=== PATIENT | male | born 1990 | race Hispanic/Latino ===

== ENCOUNTER 2019-06-16 22:23 | Emergency (ER) | payer SELFPAY ==
[2019-06-16 23:18] LABS: Absolute Lymphocytes (CBC) 1.3 K/uL (0.7-4.9); Basophils % 0.4 % (0-1.3); Hematocrit 43.6 % (39.6-49.0); Lymphocytes % 13.3 % (15.3-44.8); MPV 7.9 fL (7.6-11.3); RBC Red Blood Cell Count 4.97 M/uL (4.33-5.43)
[2019-06-16 23:22] LABS: Protime INR 1.08
[2019-06-16] MEDS ORDERED: NA CHLORIDE 0.9% 2,000 ML ONE (23:33)
[2019-06-16 23:45] LABS: ALT/SGPT 34 U/L (12-78); AST/SGOT 29 U/L (15-37); Albumin 4.5 g/dL (3.4-5.0); Alkaline Phosphatase 80 U/L (45-117); BUN Blood Urea Nitrogen 13 mg/dL (7-18); Bicarbonate 22 mmol/L (21-32); Bilirubin Direct 0.2 mg/dL (0-0.2); Bilirubin Total 0.7 mg/dL (0.2-1.0); Glucose Level 159 mg/dL (74-106); Potassium 3.5 mmol/L (3.5-5.1); Protein, Total 8.2 g/dL (6.4-8.2); Sodium Level 139 mmol/L (136-145)
--- NOTE | 2019-06-16 23:56 | RAD REPORT ---
EXAM DESCRIPTION: Elder Single View06/16/2019 11:48 pm CLINICAL HISTORY: cough COMPARISON: none FINDINGS: The lungs appear clear of acute infiltrate. The heart is normal size IMPRESSION: No acute abnormalities displayed
--- NOTE | 2019-06-17 01:14 | ER ---
Nurse's Notes [facility] Name: Prosper Jurado Age: 28 yrs Sex: Male : 1990 Arrival Date: 06/16/2019 Time: 22:[address] Private MD: Diagnosis: Epileptic seizures related to external causes;Abuse of non-psychoactive substances;Cocaine abuse;Cocaine abuse with intoxication, unspecified Presentation: 06/16 22:44 Presenting complaint: EMS states: Called out for patient barely breathing; Probable lp1 seizure witnessed by patient's girlfriend lasting about 3 minutes; States + ETOH tonight, denies any recreational drug usage, patient drowsy on arrival of EMS, HR 150's, A/O x3 on arrival to ED. Transition of care: patient was not received from another setting of care. Onset of symptoms was June 16, 2019. Risk Assessment: Do you want to hurt yourself or someone else? Patient reports no desire to harm self or others. Initial Sepsis Screen: Does the patient meet any 2 criteria? HR > 90 bpm. Does the patient have a suspected source of infection? No. Patient's initial sepsis screen is negative. Care prior to arrival: IV initiated. 18 GA, in the right antecubital area, Glucose check: 168. 22:44 Method Of Arrival: EMS: [facility] lp1 22:44 Acuity: FABRICIO 2 lp1 Historical: - Allergies: 22:48 PENICILLINS; lp1 - Home Meds: 22:48 None [Active]; lp1 - PMHx: 22:48 Asthma; lp1 - PSHx: 22:48 None; lp1 - Immunization history:: Adult Immunizations up to date. - Social history:: Smoking status: Patient uses tobacco products, denies chronic smoking, but will smoke occasionally, Patient uses alcohol, only on a social basis. Patient/guardian denies using street drugs. - Ebola Screening: : No symptoms or risks identified at this time. - Family history:: not pertinent. Screenin:47 Abuse screen: Denies threats or abuse. Denies injuries from another. Nutritional lp1 screening: No deficits noted. Tuberculosis screening: No symptoms or risk factors identified. Fall Risk Total Jackson Fall Scale indicates High Risk Score (45 or more points). Fall prevention measures have been instituted. Side Rails Up X 2 Family Present and informed to notify staff if the need to leave the bedside As available patient and family educated on Fall Prevention Program and Strategies. Assessment: 23:00 General: Appears in no apparent distress. Behavior is cooperative, restless. Pain: lp1 Denies pain. Neuro: Level of Consciousness is awake, alert, obeys commands, Oriented to person, place, situation, Speech is normal. Cardiovascular: Patient's skin is warm and dry. Respiratory: Respiratory effort is even, unlabored, Respiratory pattern is regular, Breath sounds are clear bilaterally. GI: Abdomen is non-distended. : No signs and/or symptoms were reported regarding the genitourinary system. EENT: No signs and/or symptoms were reported regarding the EENT system. Derm: Skin is pink, warm \T\ dry. Musculoskeletal: Circulation, motion, and sensation intact. 06/17 00:15 Reassessment: No changes from previously documented assessment. Patient restless in lp1 bed, cooperative; Denies pain. 01:16 Reassessment: Patient returned from CT at this time. lp1 02:00 Reassessment: Patient appears in no apparent distress at this time. Patient and/or lp1 family updated on plan of care and expected duration. Pain level reassessed. General: Appears in no apparent distress. Behavior is calm, cooperative. 02:00 Derm: Skin is pink, warm \T\ dry. lp1 Vital Signs: 06/16 22:46 BP 137 / 85; Pulse 123; Resp 20; Temp 98; Pulse Ox 94% on R/A; Weight 88.45 kg; Height lp1 5 ft. 7 in. (170.18 cm); Pain 0/10; 23:39 BP 118 / 71; Pulse 103; Resp 17; Pulse Ox 99% on R/A; jd3 06/17 00:00 BP 119 / 77; Pulse 95; Resp 18; Pulse Ox 98% on R/A; lp1 00:55 BP 119 / 73; Pulse 90; Resp 16 S; Pulse Ox 95% on R/A; jd3 01:45 BP 121 / 77; Pulse 80; Resp 20; Pulse Ox 99% on R/A; Pain 0/10; lp1 06/16 22:46 Body Mass Index 30.54 (88.45 kg, 170.18 cm) lp1 ED Course: 06/16 22:37 Patient arrived in ED. lp1 22:37 Natalie Barron, RN is Primary Nurse. lp1 22:37 Arm band placed on left wrist. lp1 22:46 Triage completed. lp1 22:47 Patient has correct armband on for positive identification. Placed in gown. Bed in low lp1 position. Seizure precautions initiated. monitor car operator on. Pulse ox on. NIBP on. 22:47 Maintain EMS IV. Dressing intact. Good blood return noted. Site clean \T\ dry. Gauge \T\ lp 1 site: 18g to R AC. 23:24 Asael Moraes MD is Attending Physician. [facility] 06/17 01:13 Jorge Card MD is Referral Physician. margo 02:10 No provider procedures requiring assistance completed. IV discontinued, No lp1 redness/swelling at site. Pressure dressing applied. 05:07 CT Head Brain wo Cont In Process Unspecified. EDMS Administered Medications: 06/16 23:39 Drug: NS 0.9% 1000 ml Route: IV; Rate: 1 bolus; Site: right antecubital; d3 06/17 01:00 Follow up: IV Status: Completed infusion; IV Intake: 1000ml lp1 06/16 23:39 Drug: NS 0.9% 1000 ml Route: IV; Rate: 1 bolus; Site: right antecubital; d3 06/17 01:00 Follow up: IV Status: Completed infusion; IV Intake: 1000ml lp1 Intake: 01:00 IV: 1000ml; Total: 1000ml. lp1 01:00 IV: 1000ml; Total: 2000ml. lp1 Outcome: 01:14 Discharge ordered by . margo 02:10 Discharged to home ambulatory, with significant other. lp1 02:10 Condition: stable 02:10 Discharge instructions given to patient, significant other, Instructed on discharge instructions, follow up and referral plans. Demonstrated understanding of instructions, follow-up care. 02:15 Patient left the ED. lp1 Signatures: Dispatcher [employer] EDMS Asael Moraes MD MD cha Pena, Laura, RN RN lp1 Hamzah Grimes RN RN jd3 Corrections: (The following items were deleted from the chart) 02:28 01:45 BP 121 / 77; Pulse 80bpm; Resp 20bpm; Pulse Ox 99% RA; lp1 lp1 02:30 02:30 Patient left the ED. lp1 lp1
--- NOTE | 2019-06-17 01:15 | EDPHYS ---
Physician Documentation [facility] Name: Prosper Jurado Age: 28 yrs Sex: Male : 1990 Arrival Date: 06/16/2019 Time: 22:[address] Private MD: ED Physician Asael Moraes HPI: 06/16 23:26 This 28 yrs old Male presents to ER via EMS with complaints of Probable margo Seizure. 23:26 The patient presents after having a single isolated seizure. Character of seizure(s): margo Loss of consciousness: the patient experienced loss of consciousness, Motor activity: generalized. Seizure onset: just prior to arrival. Context: the seizure(s) was witnessed, by family, , occurred at home. Seizure Hx: the patient has no previous seizure history. Associated injury: The patient did not suffer any apparent associated injury. The patient has not experienced similar symptoms in the past. Historical: - Allergies: 22:48 PENICILLINS; lp1 - Home Meds: 22:48 None [Active]; lp1 - PMHx: 22:48 Asthma; lp1 - PSHx: 22:48 None; lp1 - Immunization history:: Adult Immunizations up to date. - Social history:: Smoking status: Patient uses tobacco products, denies chronic smoking, but will smoke occasionally, Patient uses alcohol, only on a social basis. Patient/guardian denies using street drugs. - Ebola Screening: : No symptoms or risks identified at this time. - Family history:: not pertinent. ROS: 23:26 Constitutional: Negative for fever, chills, and weight loss, Eyes: Negative for injury, margo pain, redness, and discharge, ENT: Negative for injury, pain, and discharge, Neck: Negative for injury, pain, and swelling, Cardiovascular: Negative for chest pain, palpitations, and edema, Respiratory: Negative for shortness of breath, cough, wheezing, and pleuritic chest pain, Abdomen/GI: Negative for abdominal pain, nausea, vomiting, diarrhea, and constipation, Back: Negative for injury and pain, : Negative for injury, bleeding, discharge, and swelling, MS/Extremity: Negative for injury and deformity, Skin: Negative for injury, rash, and discoloration, Psych: Negative for depression, anxiety, suicide ideation, homicidal ideation, and hallucinations, Allergy/Immunology: Negative for hives, rash, and allergies, Endocrine: Negative for neck swelling, polydipsia, polyuria, polyphagia, and marked weight changes, Hematologic/Lymphatic: Negative for swollen nodes, abnormal bleeding, and unusual bruising. 23:26 Neuro: Positive for seizure activity. Exam: 23:26 Constitutional: This is a well developed, well nourished patient who is awake, alert, margo and in no acute distress. Head/Face: Normocephalic, atraumatic. Eyes: Pupils equal round and reactive to light, extra-ocular motions intact. Lids and lashes normal. Conjunctiva and sclera are non-icteric and not injected. Cornea within normal limits. Periorbital areas with no swelling, redness, or edema. ENT: Nares patent. No nasal discharge, no septal abnormalities noted. Tympanic membranes are normal and external auditory canals are clear. Oropharynx with no redness, swelling, or masses, exudates, or evidence of obstruction, uvula midline. Mucous membranes moist. Neck: Trachea midline, no thyromegaly or masses palpated, and no cervical lymphadenopathy. Supple, full range of motion without nuchal rigidity, or vertebral point tenderness. No Meningismus. Chest/axilla: Normal chest wall appearance and motion. Nontender with no deformity. No lesions are appreciated. Respiratory: Lungs have equal breath sounds bilaterally, clear to auscultation and percussion. No rales, rhonchi or wheezes noted. No increased work of breathing, no retractions or nasal flaring. Abdomen/GI: Soft, non-tender, with normal bowel sounds. No distension or tympany. No guarding or rebound. No evidence of tenderness throughout. Back: No spinal tenderness. No costovertebral tenderness. Full range of motion. Male : Normal genitalia with no discharge or lesions. Skin: Warm, dry with normal turgor. Normal color with no rashes, no lesions, and no evidence of cellulitis. MS/ Extremity: Pulses equal, no cyanosis. Neurovascular intact. Full, normal range of motion. Neuro: Awake and alert, GCS 15, oriented to person, place, time, and situation. Cranial nerves II-XII grossly intact. Motor strength 5/5 in all extremities. Sensory grossly intact. Cerebellar exam normal. Normal gait. Psych: Awake, alert, with orientation to person, place and time. Behavior, mood, and affect are within normal limits. 23:26 Cardiovascular: Rate: tachycardic, Rhythm: regular, Pulses: Pulses are 4+ in bilateral radial, brachial, femoral, popliteal, posterior tibial and and dorsalis pedis arteries.. Heart sounds: normal, Edema: is not appreciated, JVD: is not appreciated. Vital Signs: 22:46 BP 137 / 85; Pulse 123; Resp 20; Temp 98; Pulse Ox 94% on R/A; Weight 88.45 kg; Height lp1 5 ft. 7 in. (170.18 cm); Pain 0/10; 23:39 BP 118 / 71; Pulse 103; Resp 17; Pulse Ox 99% on R/A; jd3 06/17 00:00 BP 119 / 77; Pulse 95; Resp 18; Pulse Ox 98% on R/A; lp1 00:55 BP 119 / 73; Pulse 90; Resp 16 S; Pulse Ox 95% on R/A; jd3 01:45 BP 121 / 77; Pulse 80; Resp 20; Pulse Ox 99% on R/A; Pain 0/10; lp1 06/16 22:46 Body Mass Index 30.54 (88.45 kg, 170.18 cm) lp1 MDM: 06/16 23:24 Patient medically screened. [facility] 23:30 Data reviewed: vital signs, nurses notes, lab test result(s), EKG, radiologic studies, [facility] CT scan, plain films. 06/16 22:37 Order name: Acetaminophen lp1 06/16 22:37 Order name: Basic Metabolic Panel lp1 06/16 22:37 Order name: CBC with Diff lp1 06/16 22:37 Order name: ETOH Level lp1 06/16 22:37 Order name: Hepatic Function lp1 06/16 22:37 Order name: PT-INR lp1 06/16 22:37 Order name: Ptt, Activated lp1 06/16 22:37 Order name: Salicylate lp1 06/16 22:37 Order name: Urine Drug Screen lp1 06/16 23:23 Order name: CBC with Automated Diff; Complete Time: 01:11 EDMS 06/16 23:46 Order name: Salicylates Level; Complete Time: 01:11 EDMS 06/16 23:47 Order name: Basic Metabolic Panel; Complete Time: 01:11 EDMS 06/16 23:47 Order name: Liver (Hepatic) Function; Complete Time: 01:11 [facility] 06/16 23:47 Order name: Acetaminophen Level; Complete Time: : [facility] 06/16 22:37 Order name: EKG; Complete Time: 22:39 [facility] 06/16 22:37 Order name: EKG - Nurse/Tech; Complete Time: 22:37 [facility] 06/16 22:37 Order name: IV Saline Lock; Complete Time: 22:37 [facility] 06/16 22:37 Order name: Labs collected and sent; Complete Time: 22:37 [facility] 06/16 22:37 Order name: Urine Dipstick-Ancillary (obtain specimen); Complete Time: 01:31 [facility] 06/16 23:25 Order name: CT Head Brain wo Cont [facility] 06/16 23:25 Order name: Seizure Precautions; Complete Time: 23:[address] [facility] 06/16 23:25 Order name: Chest Single View XRAY [facility] 06/16 23:47 Order name: Alcohol Serum/Plasma; Complete Time: : [facility] 06/16 23:50 Order name: Protime (+INR); Complete Time: : [facility] 06/16 23:50 Order name: PTT, Activated Partial Thromb; Complete Time: :11 [facility] 06/16 23:58 Order name: RAD; Complete Time: : [facility] 06/17 01:35 Order name: Urine Dipstick--Ancillary (enter results) [facility] 06/17 02:18 Order name: Urine Drug Screen EDMS Administered Medications: 23:39 Drug: NS 0.9% 1000 ml Route: IV; Rate: 1 bolus; Site: right antecubital; [facility] 06/17 01:00 Follow up: IV Status: Completed infusion; IV Intake: 1000ml lp1 06/16 23:39 Drug: NS 0.9% 1000 ml Route: IV; Rate: 1 bolus; Site: right antecubital; [facility] 06/17 01:00 Follow up: IV Status: Completed infusion; IV Intake: 1000ml lp1 Disposition: 06/17/19 01:14 Discharged to Home. Impression: Epileptic seizures related to external causes, Abuse of non-psychoactive substances, Cocaine abuse, Cocaine abuse with intoxication, unspecified. - Condition is Stable. - Discharge Instructions: Chemical Dependency, Stimulant Use Disorder-Cocaine, Substance Use Disorder, Nonepileptic Seizures, Seizure, Adult, Seizure, Adult, [id number]. - Medication Reconciliation Form, Thank You Letter, Antibiotic Education, Prescription Opioid Use, Work release form form. - Follow up: Private Physician; When: 2 - 3 days; Reason: Recheck today's complaints, Continuance of care, Re-evaluation by your physician. Follow up: Jorge Card MD; When: 2 - 3 days; Reason: Recheck today's complaints, Re-evaluation by your physician. - Problem is new. - Symptoms have improved. Signatures: Dispatcher [employer] EDMS Asael Moraes MD MD cha Pena, Laura RN RN lp1 Hamzah Grimes RN RN jd3 Corrections: (The following items were deleted from the chart) 02:30 01:14 06/17/2019 01:14 Discharged to Home. Impression: Epileptic seizures related to lp1 external causes; Abuse of non-psychoactive substances; Cocaine abuse; Cocaine abuse with intoxication, unspecified. Condition is Stable. Forms are Medication Reconciliation Form, Thank You Letter, Antibiotic Education, Prescription Opioid Use. Follow up: Private Physician; When: 2 - 3 days; Reason: Recheck today's complaints, Continuance of care, Re-evaluation by your physician. Follow up: Jorge Card; When: 2 - 3 days; Reason: Recheck today's complaints, Re-evaluation by your physician. Problem is new. Symptoms have improved. margo
[2019-06-17 02:18] LABS: Barbiturates NEGATIVE (NEGATIVE); Benzodiazepines NEGATIVE (NEGATIVE); Cocaine POSITIVE (NEGATIVE); METHAMPHETAM NEGATIVE (NEGATIVE); Methadone NEGATIVE (NEGATIVE); Opiates NEGATIVE (NEGATIVE); Phencyclidine NEGATIVE (NEGATIVE); THC Cannibis NEGATIVE (NEGATIVE)
[2019-06-17 02:45] LABS: Urine Blood TRACE (NEG); Urine Glucose 1+ (NEG); Urine Protein 1+ (NEG); Urine Specific Gravity 1.025 (1.005-1.030); Urine pH 6.5 (5.0-7.0)
--- NOTE | 2019-06-17 08:21 | EKG ---
Test Date: 2019-06-16 Test Time: 22:41:09 Gas Regulator Repairer: NATTY MEASUREMENT RESULTS: Intervals: Rate: 124 CO: 146 QRSD: 82 QT: 322 QTc: 462 [place]: P: 41 CO: 146 QRS: 52 T: 35 INTERPRETIVE STATEMENTS: Sinus tachycardia Otherwise normal ECG No previous ECG available for comparison Electronically Signed On 06-17-19 08:20:47 KEYBOARD SPECIALIST by Ranulfo Mukherjee
[2019-06-17 08:25] VITALS: TEMP 98
[2019-06-17 08:31] VITALS: BP 121/77; O2SAT 99
--- NOTE | 2019-06-20 14:40 | RAD REPORT ---
EXAM DESCRIPTION: CT - Head Brain Wo Cont - 06/17/2019 4:46 am CLINICAL HISTORY: 28 years Male Dizziness;Seizure COMPARISON: None TECHNIQUE: Contiguous axial images of the brain were obtained without the administration of intraven ous contrast.This exam was performed according to our departmental dose-optimization program which in cludes use of Automated Exposure Control, adjustment of the mA and/or kV according to patient size an d/or use of iterative reconstruction technique. FINDINGS: Brain: No acute intracranial hemorrhage. No extra-axial collection. No mass effect or wilian iation. Ventricles: Within normal limits in size. Globes and orbits: No acute abnormality. Bones: No acute osseous finding Paranasal sinuses: Paranasal sinuses are clear. Mastoid air cells: Well pneumatized. Soft tissues: Within normal limits IMPRESSION: No acute intracranial abnormality. If clinical concern for acute ischemia, consider MRI brain without contrast for further evaluation. Electronically signed by: Alfa Esteban DO 06/17/2019 1:27 AM PHOTOGRAMMETRY AIRPLANE PILOT Due to temporary technical issues with the PACS/Fluency reporting system, reports are being signed by the in house radiologist as a courtesy to ensure prompt reporting. The interpreting radiologist is f ully responsible for the content of the report.
== END 2019-06-17 02:30 | disposition home or self-care (01) ==
LOC: ER 22:23
DX: F14.129 Cocaine abuse with intoxication, unspecified (principal); F55.8 Abuse of other non-psychoactive substances; Z88.0 Allergy status to penicillin; Z72.0 Tobacco use
CPT/HCPCS: 36415; 70450; 71045; 80048; 80076; 80307; 80320; 80329; 81003; 85025; 85610; 85730; 93005; 96360; 99284; J7030